=== PATIENT | male | born 1995 | race Caucasian/White ===

== ENCOUNTER 2021-01-28 19:42 | Emergency (ER) | payer OTHER ==
[2021-01-28 20:42] LABS: HEMOGLOBIN 15.4 gm/dl (14.0-17.5); RED BLOOD COUNT 5.03 M/UL (4.20-5.50); WHITE BLOOD COUNT 7.6 K/UL (4.5-11.0)
[2021-01-28 21:12] LABS: BUN/CREATININE RATIO 9 (0-10)
== END 2021-01-29 03:12 | disposition home or self-care (01) ==
LOC: ER1 19:42
PROVIDERS: Physician Assistant
DX: K59.00 Constipation, unspecified (principal); K62.5 Hemorrhage of anus and rectum; F17.200 Nicotine dependence, unspecified, uncomplicated; Z88.0 Allergy status to penicillin
CPT/HCPCS: 80053; 81001; 82272; 83690; 85025; 99284; Q9967

== ENCOUNTER 2021-02-12 13:18 | Emergency (ER) | payer OTHER ==
[2021-02-12 14:03] LABS: HEMOGLOBIN 16.5 gm/dl (14.0-17.5); RED BLOOD COUNT 5.37 M/UL (4.20-5.50)
[2021-02-12 14:50] LABS: BUN/CREATININE RATIO 20 (0-10)
[2021-02-12] MEDS ORDERED: VISTARIL25 MG PO (15:18)
== END 2021-02-12 15:24 | disposition home or self-care (01) ==
LOC: ER1 13:18
PROVIDERS: Preventive Medicine Occupational Medicine
DX: F41.0 Panic disorder [episodic paroxysmal anxiety] (principal)
CPT/HCPCS: 71045; 80048; 80307; 81001; 82550; 82553; 84484; 85025; 86140; 87086; 93005; 99285; Q0177

== ENCOUNTER 2021-02-27 11:42 | Emergency (ER) | payer OTHER ==
[~2021-02-27 11:42] MED LIST: VISTARIL25 MG PO
[2021-02-27 14:17] LABS: HEMOGLOBIN 14.6 gm/dl (14.0-17.5); RED BLOOD COUNT 4.96 M/UL (4.20-5.50); WHITE BLOOD COUNT 3.3 K/UL (4.5-11.0)
[2021-02-27 14:23] LABS: BUN/CREATININE RATIO 8 (0-10)
== END 2021-02-27 16:35 | disposition home or self-care (01) ==
LOC: ER1 11:42
PROVIDERS: Emergency Medicine
DX: M54.9 Dorsalgia, unspecified (principal); R51.9 Headache, unspecified; Z88.0 Allergy status to penicillin
CPT/HCPCS: 72129; 72132; 80048; 85025; 85652; 86140; 87040; 96372; 99284; J1885; Q9967

== ENCOUNTER 2021-05-20 04:05 | Emergency (ER) | payer OTHER ==
[2021-05-20 04:52] LABS: HEMOGLOBIN 16.5 gm/dl (14.0-17.5); RED BLOOD COUNT 5.39 M/UL (4.20-5.50); WHITE BLOOD COUNT 6.3 K/UL (4.5-11.0)
[2021-05-20 05:05] LABS: BUN/CREATININE RATIO 15 (0-10)
== END 2021-05-20 05:35 | disposition home or self-care (01) ==
LOC: ER1 04:05
PROVIDERS: Physician Assistant
DX: R53.1 Weakness (principal); R07.89 Other chest pain; Z88.0 Allergy status to penicillin; F17.200 Nicotine dependence, unspecified, uncomplicated
CPT/HCPCS: 71045; 80048; 84484; 85025; 93005; 99285

== ENCOUNTER → 2021-09-02 | Emergency (ER) | payer OTHER ==
[2021-09-02 12:22] LABS: RED BLOOD COUNT 5.23 M/UL (4.20-5.50); WHITE BLOOD COUNT 5.4 K/UL (4.5-11.0)
[2021-09-02 12:52] LABS: BUN/CREATININE RATIO 12 (0-10)
== END | disposition home or self-care (01) ==
LOC: ER1 11:25
DX: R07.9 Chest pain, unspecified (principal); R06.02 Shortness of breath
CPT/HCPCS: 71045; 80053; 82550; 82553; 84484; 85025; 93005; 96372; 99285; J1885

== ENCOUNTER 2021-09-04 10:52 | Emergency (ER) | payer OTHER ==
[2021-09-04 13:36] LABS: HEMOGLOBIN 15.6 gm/dl (14.0-17.5); RED BLOOD COUNT 5.09 M/UL (4.20-5.50); WHITE BLOOD COUNT 4.9 K/UL (4.5-11.0)
[2021-09-04 13:57] LABS: BUN/CREATININE RATIO 16 (0-10)
== END 2021-09-04 14:45 | disposition home or self-care (01) ==
LOC: ER1 10:52
PROVIDERS: Physician Assistant
DX: S43.402A Unspecified sprain of left shoulder joint, initial encounter (principal); M62.838 Other muscle spasm; Z88.0 Allergy status to penicillin; X50.0XXA Overexertion from strenuous movement or load, initial encounter
CPT/HCPCS: 71045; 80053; 82550; 82553; 84484; 85025; 99283

== ENCOUNTER → 2021-09-09 | Emergency (ER) | payer OTHER ==
[2021-09-09 06:06] LABS: HEMOGLOBIN 14.1 gm/dl (14.0-17.5); RED BLOOD COUNT 4.6 M/UL (4.20-5.50); WHITE BLOOD COUNT 6.9 K/UL (4.5-11.0)
[2021-09-09 06:31] LABS: BUN/CREATININE RATIO 9 (0-10)
== END | disposition home or self-care (01) ==
LOC: ER1 05:32
PROVIDERS: Family Medicine
DX: M54.50 Low back pain, unspecified (principal); R59.0 Localized enlarged lymph nodes; Z88.0 Allergy status to penicillin; F17.200 Nicotine dependence, unspecified, uncomplicated
CPT/HCPCS: 72129; 72132; 80053; 80307; 81001; 83605; 85025; 86140; 99284; Q9967